=== PATIENT | female | born 1975 | race Caucasian/White ===

== ENCOUNTER → 2022-04-04 14:02 | Outpatient (CLI) | payer BC, SELFPAY ==
--- NOTE | ~2022-04-04 | MM_ITS ---
EXAMINATION: MM scrn justen implant BI w adrianne HISTORY: Screening mammogram TECHNIQUE: Craniocaudal and mediolateral oblique 3-D tomosynthesis images with implant displacement a nd synthetic 2-D images were generated. Craniocaudal and mediolateral oblique views of the breasts wi thout implant displacement were obtained using full field digital mammography. CAD analysis was submi tted and interpreted. COMPARISON: No prior mammogram is available for comparison at this institution. BREAST PARENCHYMAL COMPOSITION: The breasts are heterogeneously dense, which may obscure small masses FINDINGS: There are bilateral subpectoral silicone implants. There is no evidence of suspicious mass, calcification, or architectural distortion to suggest malignancy in either breast. There has been no suspicious interval change. IMPRESSION: 1. No mammographic evidence of malignancy. 2. Recommend routine screening mammography in one year. BI-RADS Category 1: Negative Reviewed, dictated and finalized at location A.
== END ==
PROVIDERS: PCP Family Medicine; Visit Provider Nurse Practitioner Obstetrics & Gynecology
DX: Z12.31 Encounter for screening mammogram for malignant neoplasm of breast (principal)
CPT/HCPCS: 77063; 77067

== ENCOUNTER 2025-04-18 17:25 | Emergency (ER) | payer BC, SELFPAY ==
--- OUTSIDE RECORDS SUMMARY | 2025-04-18 17:31 | XMS_ITS | Clinical Summary ---
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 Name Role Phone Unavailable Primary Care Provider Unavailabl e Allergies No known active allergies Social History Tobacco Use Types Packs/Day Years Used Date Smoking Tobacco: Former Smokeless Tobacco: Never Alcohol Use Standard Drinks/Week Comments Yes 0 (1 standard drink = 0.6 oz pur e alcohol) 4-5 days/week Comments Unknown Sex and Gender Information Value Date Recorded Sex Assigned at Not on file Legal Sex Female 8:29 PM CDT Gender Identity Not on file Sexual Orientation Not on file Last Filed Vital Signs Vital Sign Reading Time Taken Comments Blood Pressure 120/62 06/20/2017 5:16 PM MILLER SUPERVISOR Pulse 91 06/20/2017 5:16 PM MILLER SUPERVISOR Temperature 36.4 C (97.6 F) 06/20/2017 5:16 PM MILLER SUPERVISOR Respiratory Rate 18 06/20/2017 5:16 PM MILLER SUPERVISOR Oxygen Saturation 100% 06/20/2017 5:16 PM MILLER SUPERVISOR Inhaled Oxygen Concentration - - Weight - - Height - - Body Mass Index - - Plan of Treatment Health Maintenance Due Date Last Done Comments Cervical Cancer Screening Pa p Smear (Age 30 to 64) Every 3 Years 1977 Colorectal Cancer Screening Colonoscopy (10 Years) 1977 Annual Physical 1980 Hepatitis C 1995 DTaP, Tdap and Td Vaccines ( 1 - Tdap) 1996 Hepatitis B Vaccines (1 of 3 - 19+ 3-dose series) 1996 Cervical Cancer Screening Pa p with HPV Testing (Age 30 to 64) Every 5 Years 2007 Cervical Cancer Screening with HPV 2007 Mammogram Screening 2017 COVID-19 Vaccine (2024-2 6 season) 2025 Influenza Adult (#1) 2025 Hepatitis A Vaccines Aged Out No long er eligible based on patient's age to complete this topic Meningococcal B Vaccine Aged Out No l onger eligible based on patient's age to complete this topic Meningococcal Vaccine Aged Out No shira klaudia eligible based on patient's age to complete this topic Pneumococcal Vaccine: Pediat rics (0 to 5 Years) and At-Risk Patients (6 to 49 Years) Aged Out No longer eligible b ased on patient's age to complete this topic RSV Immunizations Under 20 Months Aged Out No longer eligible based on patient's age to complete this topic Insurance
--- OUTSIDE RECORDS SUMMARY | 2025-04-18 17:31 | XMS_ITS | Clinical Summary ---
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 Gender Identity Not on file Sexual Orientation Not on file Plan of Treatment Health Maintenance Due Date Last Done Comments Hepatitis C Virus (HCV) Screening 1977 TdaP Immunization 1977 Hepatitis B Immunization (1 of 3 - 19+ 3-dose series) 1996 Pap Smear 1998 Cervical Cancer Screening (CCS) 2007 HPV/Cotest 2007 Cologuard 2022 Colonoscopy 2022 Colorectal Cancer Screening 2022 Immunochemical Fecal Occult Blood 2022 Influenza Immunization (#1) 02/23/202503/26, 04/04/2019, 04/10/2018, Additional history exists SARS-COV-2 Immunization ( season) 2025 Respiratory Syncytial Virus (RSV) Immunization (Adult) (1 - 1-dose 75+ series) 2052 Human Papillomavirus (HPV) Immunization Aged Out No longer eligible based on patient's age to complete this topic Meningococcal Immunization (ACWY) Aged Out No longer eligible based on patient's age to complete this topic Pneumococcal Immunization Combined Aged Out No longer eligible based on patient's age to complete this topic Rotavirus Immunization Aged Out No lo nger eligible based on patient's age to complete this topic Insurance [employer] on file
[2025-04-18 17:34] VITALS: BP 118/69; PULSE 86; RESP 18; TEMP 36.8; O2SAT 100
--- NOTE | 2025-04-18 17:40 | ED.URI ---
HPI - URI/Sore Throat General Chief Complaint: Upper Respiratory Infection Stated Complaint: URI Time Seen by Provider: 04/18/25 17:28 patient presents to the [facility] with complaints of cough, nasal congestion, sore throat, headache, sinus pain that began about a week and a half ago. Patient also reports possible fever/chills intermittently over this time frame as well. Noted worsening sore throat, sinus pain, and fatigue over the last couple days. Patient has been using Sudafed with temporary relief of symptoms. Denies dizziness, ear pain, shortness a breath, nausea, vomiting, diarrhea. Related Data Allergies Allergy/AdvReac Type Severity Reaction Status Date / Time Penicillins Allergy Unknown rash Verified 04/18/25 17:34 sulfamethizole Allergy Unknown rash Verified 04/18/25 17:34 doxycycline AdvReac Unknown stomach Verified 04/18/25 17:34 pain escitalopram AdvReac Unknown heartburn Verified 04/18/25 17:34 Review of Systems Constitutional: Constitutional: Reports as per HPI, Reports chills, Reports fatigue, Reports fever(s) and Denies weakness Eyes: Eyes: Reports no additional eye complaints ENT: Reports as per HPI, Denies vertigo, Denies dizziness, Reports nasal congestion and Reports sore throat Comments: Sinus pain Cardiovascular: Cardiovascular: Reports no additional cardiovascular complaints Respiratory: Respiratory: Reports as per HPI, Reports chest congestion, Reports cough, Denies dyspnea and Denies wheezing Gastrointestinal: Gastrointestinal: Reports no additional gastrointestinal complaints Genitourinary: Genitourinary: Reports no additional female genitourinary complaints Musculoskeletal: Musculoskeletal: Reports no additional musculoskeletal complaints Integumentary/Breasts: Skin/Breast: Reports system reviewed and no additional complaints, except as docu Neurologic: Reports as per HPI, Denies vertigo, Denies dizziness, Reports headache(s) and Denies weakness Psychiatric: Psychiatric: Reports no additional psychiatric complaints Endocrine: Endocrine: Reports no additional endocrine complaints Hematologic/Lymphatic: Hematologic/Lymphatic: Reports no additional hematologic/lymphatic complaints Allergic/Immunologic: Allergic/Immunologic: Reports as per HPI Comments: seasonal allergies PMFSH Social History Social History Smoking status: Former smoker Alcohol intake: current Exam Const: General: healthy appearing and no acute distress Nutritional Appearance: well nourished Orientation/consciousness: patient oriented x3 Limitations: no limitations HENMT: Head: normal to inspection Ears: external ears normal and TM's abnormal bilaterally ( dullness with mild erythema bilaterally) Face/Nose/Sinus: Normal external nose present and Normal nares present Face and sinus: normal facial exam and sinus tenderness maxillary Mouth: Yes Normal oral and palatal mucosa present, Yes lip normal and Yes moist mucous membranes Throat: posterior oropharynx abnormal ( minimal erythema with no edema or exudate) Neck: Neck: normal visual inspection and no lymphadenopathy Resp: Effort & Inspection: normal respiratory effort Auscultation: clear to auscultation bilaterally Other: dry cough noted Cardio: Rate: regular rate Rhythm: regular rhythm Skin: General skin exam: normal color Rashes: no rashes Wounds: no wounds Neuro: General: patient oriented x3 Speech: normal speech Gait exam (Neuro): Normal gait present Psych: Mental Status: mental status grossly normal Affect: normal affect Attitude: cooperative Course Course Level of Care: Express Care Visit Vital Signs Vital signs: Vital Signs Temperature 98.2 F 04/18/25 17:34 Pulse Rate 86 04/18/25 17:34 Respiratory Rate 18 04/18/25 17:34 Blood Pressure 118/69 04/18/25 17:34 Pulse Oximetry 100 04/18/25 17:34 Oxygen Delivery Room Air 04/18/25 17:34 Temperature 98.2 F 04/18/25 17:34 Pulse Rate 86 04/18/25 17:34 Respiratory Rate 18 04/18/25 17:34 Blood Pressure 118/69 04/18/25 17:34 Pulse Oximetry 100 04/18/25 17:34 Oxygen Delivery Room Air 04/18/25 17:34 MDM - URI/Sore Throat MDM Narrative Medical decision making narrative: The patient was evaluated by myself in the express care. History is obtained from patient who is an independent historian and physical exam was performed. Available medical records were reviewed at this time. Exam findings show no acute concerns or changes; patient is non-toxic appearing and is in no distress. Patient is appropriate for outpatient treatment and follow-up. I have evaluated and discussed social determinants of health with the patient that could potentially impact subsequent diagnosis and treatment plans. Differential diagnosis and treatment plan were discussed with the patient. Patient agrees with discussion and after shared medical decision making agrees with plan of care. All questions were answered to the patient's satisfaction. Differential Diagnosis Differential diagnosis: Likely upper respiratory infection, croup, otitis media, sinusitis, viral infection, bronchitis, influenza and pharyngitis Medical Records Attestation: I reviewed the patient's medical records. Discharge Plan Discharge Clinical Impression: Sinusitis Patient Disposition: Home Condition: Stable Instructions: Antibiotic Form, Sinusitis (ED) Additional Instructions: Take the antibiotics as directed for the entire course. Do not miss any doses. What you are taking antibiotics and is recommended to take a probiotic or have yogurt daily to return the good gut bacteria to your system. This can also help with acute diarrhea while taking antibiotics. It can take 24-48 hours for the antibiotics to start to relieve your symptoms continue to take these medications to help with various symptoms: Tylenol or Motrin for pain, headache, or fever Flonase/fluticasone or Nasacort/triamcinolone nasal spray- helps with congestion and nasal drainage. Sudafed/pseudoephedrine helps with sinus pain and congestion. Caution with high blood pressure. Use a humidifier or vaporizer at night. Drink plenty of water. 8-10 glasses per day. Mucinex/guaifenesinas directed and be sure to take with 8oz of water. Warm compresses over the forehead and cheeks to promote sinus drainage. Return to urgent care or go to the ER for new or worsening symptoms. Follow up with Primary provider if not improved after 1 week. Patient Language: Citizen Of [place] Prescriptions: New cefdinir 300 mg capsule 300 mg PO Q12H Qty: 20 0RF Follow-up/Referrals: Rory Keith MD [Primary Care Provider, [facility]] Time of Disposition: 17:41
== END 2025-04-18 17:44 | disposition home or self-care (01) ==
PROVIDERS: Emergency Provider Nurse Practitioner Family; PCP Family Medicine
DX: J32.9 Chronic sinusitis, unspecified (principal); Z87.891 Personal history of nicotine dependence
CPT/HCPCS: 99213; G0463

== ENCOUNTER 2025-04-25 15:29 | Emergency (ER) | payer BC, SELFPAY ==
--- OUTSIDE RECORDS SUMMARY | 2025-04-25 15:32 | XMS_ITS | Clinical Summary ---
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
--- OUTSIDE RECORDS SUMMARY | 2025-04-25 15:32 | XMS_ITS | Clinical Summary ---
Author Organization [facility] Address [address] [place] [id number] Care Team Providers Care Optimization Consultant Name Role Phone Unavailable Primary Care Provider [...] Comments Blood Pressure 120/62 06/20/2017 5:16 PM RADIOLOGY TECHNICIAN Pulse 91 06/20/2017 5:16 PM RADIOLOGY TECHNICIAN Temperature 36.4 C (97.6 F) 06/20/2017 5:16 PM RADIOLOGY TECHNICIAN Respiratory Rate 18 06/20/2017 5:16 PM RADIOLOGY TECHNICIAN Oxygen Saturation 100% 06/20/2017 5:16 PM RADIOLOGY TECHNICIAN Inhaled Oxygen Concentration - - Weight - [...]
--- NOTE | 2025-04-25 15:33 | ED.GENADULT ---
HPI - General Adult General Chief complaint: Upper Respiratory Infection Stated complaint: Cold Like Time Seen by Provider: 04/25/25 15:33 Source: patient Mode of arrival: ambulatory Limitations: no limitations History of Present Illness HPI narrative: 49-year-old female patient presents to [facility] with complaints cough with sputum production, tenderness to the maxillary sinuses, fatigue and states just overall not feeling any better. Patient was seen here last week and was diagnosed with sinusitis and given an antibiotic. Patient states she has been taking the antibiotic as prescribed does not feel like it is improving her symptoms at all. Patient denies any chest pain or shortness of breath. Patient states she has been taking Sudafed along with the antibiotic. Patient denies fevers at this time. Related Data Allergies Allergy/AdvReac Type Severity Reaction Status Date / Time Penicillins Allergy Unknown rash Verified 04/25/25 15:37 sulfamethizole Allergy Unknown rash Verified 04/25/25 15:37 doxycycline AdvReac Unknown stomach Verified 04/25/25 15:37 pain escitalopram AdvReac Unknown heartburn Verified 04/25/25 15:37 Review of Systems Review of Systems: CONSTITUTIONAL: Denies fever, chills, or sweats. EYES: Denies visual changes, redness, or discharge. ENT: Denies rhinorrhea, Positive congestion, denies sore throat, or otalgia. CARDIOVASCULAR: Denies chest pain, palpitations, or edema. RESPIRATORY: positive cough denies dyspnea. GASTROINTESTINAL: Denies abdominal pain, nausea, vomiting, or diarrhea. GENITOURINARY: Denies dysuria or hematuria. SKIN: Denies rash or itching. MUSCULOSKELETAL: Denies back pain, joint pain, or myalgia. NEUROLOGIC: Denies headache, numbness, or weakness. PSYCHIATRIC: Denies anxiety or depression. PMFSH Past Medical History Medical History (Updated 04/25/25 @ 15:55 by Gricelda Welch APRN) Leukocytosis Asthma Social History Social History Smoking status: Former smoker Alcohol intake: current Comments At the time of my signature I agree with nursing past medical history, surgical, social, and family history. There is no relevant family history pertinent to the presenting complaint. Exam Narrative: GENERAL: Well-appearing, well-nourished, and in no acute distress. HEAD: Normocephalic, atraumatic. EYES: PERRLA and EOMI. ENT: Nares with erythema edema noted bilaterally, no rhinorrhea or epistaxis. Mucous membranes moist. posterior pharynx with no erythema, tonsillar enlargement, exudates or lesions present. Bilateral TMs do appear slightly injected. There is tenderness noted along palpation of the maxillary sinuses. NECK: Supple. No lymphadenopathy CHEST: Clear to auscultation. No respiratory distress. HEART: Regular rate and rhythm. No murmur heard. Normal peripheral pulses. ABDOMEN: Soft, nontender, nondistended, normal active bowel sounds. EXTREMITIES: Normal range of motion. No edema. SKIN: Warm, dry, no rash. NEURO: No focal deficits. Alert and oriented x3. Course Course Level of Care: Express Care Visit Vital Signs Vital signs: Vital Signs Temperature 36.5 C 04/25/25 15:35 Pulse Rate 90 04/25/25 15:35 Respiratory Rate 18 04/25/25 15:35 Blood Pressure 126/63 04/25/25 15:35 Pulse Oximetry 100 04/25/25 15:35 Oxygen Delivery Room Air 04/25/25 15:35 Temperature 36.5 C 04/25/25 15:35 Pulse Rate 90 04/25/25 15:35 Respiratory Rate 18 04/25/25 15:35 Blood Pressure 126/63 04/25/25 15:35 Pulse Oximetry 100 04/25/25 15:35 Oxygen Delivery Room Air 04/25/25 15:35 vital signs reviewed Medical Decision Making MDM Narrative Medical decision making narrative: Discussed with patient to complete the antibiotic that was prescribed to her last week and we will add a steroid to help with the inflammation of the sinuses along with [place] for her cough. Discussed with her that her lung sounds are nice and clear and therefore I do not believe that her symptoms are coming from the lungs I do believe this is most likely some inflammation. Also recommend that she increase her vitamin intake vitamin-C, zinc and vitamin-D which will help her immune system fight off the virus. Discussed with patient if she continues to have worsening symptoms she needs to see her primary doctor for further evaluation. Differential Diagnosis Differential Diagnosis: differential diagnosis: Allergic rhinitis, chronic sinusitis, tonsillitis, acute sinusitis, infectious mononucleosis, seasonal influenza, pertussis, diphtheria, meningococcal disease, viral syndrome, viral bronchitis, RSV, COVID-19 Vital Signs Vital Signs: Vital Signs Temperature 36.5 C 04/25/25 15:35 Pulse Rate 90 04/25/25 15:35 Respiratory Rate 18 04/25/25 15:35 Blood Pressure 126/63 04/25/25 15:35 Pulse Oximetry 100 04/25/25 15:35 Oxygen Delivery Room Air 04/25/25 15:35 Temperature 36.5 C 04/25/25 15:35 Pulse Rate 90 04/25/25 15:35 Respiratory Rate 18 04/25/25 15:35 Blood Pressure 126/63 04/25/25 15:35 Pulse Oximetry 100 04/25/25 15:35 Oxygen Delivery Room Air 04/25/25 15:35 Critical Care Time Critical Care Time Critical Care Time: No Discharge Plan Discharge Clinical Impression: Acute viral sinusitis Patient Disposition: Home Condition: Stable Instructions: Antibiotic Form, Sinusitis (ED) Additional Instructions: Viral illness may last between 7-12days; antibiotic is NOT recommended at this time. Recommend antihistamine such as Benadryl at night time and Claritin/Zyrtec/Jo during the day take oral steroid in the morning with food. Side effects of oral steroids can increase hunger, make you feel hyper and decrease sleep. Increase vitamin intake take 4000 mg of vitamin-C daily 1999 in the morning in 1999 in the evening. Vanc 40-50 mg a day for 4-5 days and vitamin D 8150-4268 IU daily will help decrease your viral load. Also, recommend symptomatic treatment includes: rest, fluids, and increase humidity of the air at home. Recommend Acetaminophen or nonsteroidal anti-inflammatory agents (NSAIDs) as directed in the bottle to reduce fever and/pain/headache. Avoid smoking/second-hand smoke. Limit visits to areas with large crowds. Please schedule a follow-up visit with your personal physician for further evaluation and treatment within 3-5days. Including recheck and discussion of your blood pressure. If your symptoms persist, change or worsen significantly before you can contact your personal physician then please, without delay, go to the emergency department for further evaluation. Patient Language: Croatian Prescriptions: New benzonatate 200 mg capsule 200 mg PO TID PRN (Reason: cough) 10 Days Qty: 30 0RF prednisone 20 mg tablet 20 mg PO DAILY 5 Days Qty: 5 0RF No Action cefdinir 300 mg capsule 300 mg PO Q12H Qty: 20 0RF Follow-up/Referrals: Rory Keith MD [Primary Care Provider, [facility]] Time of Disposition: 15:55
--- OUTSIDE RECORDS SUMMARY | 2025-04-25 15:33 | XMS_ITS | Data Portability ---
Author Organization [facility] Address [address] [place] [address] Care Team Providers Care Music Publicist Name Role Phone KARLOSFELSIA RADER Primary Care Provider [phone] Assessment Encounter Date Assessment Date Assessment LastModified by Organization Details LastModified Time 08/28/2020 08/28/2020 Annual gynecological exam performed. Patient will come back in a year unless there are new symptoms. [email or web address] Not available 08/28/2020 11:17:32 02/07/2022 02/07/2022 Annual gynecological exam performed. Patient will come back in a year unless there are new symptoms. Not available 02/07/2022 11:00:51 03/15/2023 03/15/2023 Annual gynecological exam performed. Patient will come back in a year unless there are new symptoms. [email or web address] Not available 03/15/2023 13:59:31 07/31/2024 07/31/2024 Annual gynecological exam performed. Patient will come back in a year unless there are new symptoms. Not available 07/25/2024 11:22:47 Plan of Treatment Reminders Order Date Submit Date Provider Last Modified By Organization Details Last Modified Time Details Appointments None recorded. Lab CBC w/ auto diff 2024 025 [facility] (Lab), [address], [place], [address], 05:15:20 CMP, serum or plasma 2024 025 [facility] (Lab), [address], [place], [address], 5 05:15:20 lipid panel, blood 2024 025 [facility] (Lab), [address], [place], [address], 5 05:15:21 TSH, serum or plasma 2024 025 [facility] (Lab), [address], [place], [address], 5 05:15:21 HbA1c (hemoglobi n A1c), blood 2024 025 [facility] (Lab), [address], [place], [address], 5 05:15:21 lipid panel, blood 2021 022 [facility] (Lab), [address], [place], [address], 2 03:48:58 HbA1c (hemoglobi n A1c), blood 2021 022 [facility] (Lab), [address], [place], [address], 2 03:48:58 CMP, serum or plasma 2021 022 [facility] (Lab), [address], [place], [address], 2 03:48:59 vitamin D, 25-hydroxy , total, serum 2021 022 [facility] (Lab), [address], [place], [address], 2 03:48:59 CBC w/ auto diff 2021 022 [facility] (Lab), [address], [place], [address], 03:48:57 TSH, serum or plasma 2021 022 [facility] (Lab), [address], [place], [address], 03:48:59 Referral None recorded. Procedures None recorded. Surgeries None recorded. Imaging US, neck, soft tissue 2024 025 [email or web address] [facility], [address], [place], [address], 12:31:25 MAMMO, screening, digital, bilateral 2024 025 [facility], [address], [place], [address], 5 05:01:35 MAMMO, screening, bilateral 2022 023 [email or web address] [facility], [address], [place], [address], 3 10:49:36 MAMMO, screening, bilateral 2021 022 [facility], [address], [place], [address], 2 16:57:55 Medication Orders None recorded. Patient TargetsNo targets recorded. Patient InstructionsNo instructions recorded. Reason for Referral None Reported. 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 Locat ion: [place] Patho logy Recei blake: 08/31 1622 First Scree n: Elena Pires ret, CT Speci men: Scree jamari Pap - Image d, Cervi x STATE MENT OF ADEQU ACY: Satis facto ry for evalu ation Trans forma tion zone compo nent prese nt FINAL DIAGN OSIS: Negat praveen for Squam ous Intra epith elial Lesio n Elect albaniamagalys murillolisandra barney d by Elena Pires ret, CT on 2020 at 1:26 PM ----- ----- ----- ----- ----- ----- ----- ----- ----- ----- ----- ----- ----- ----- ----- ----- ----- ----- - CHART ABLE COMME NT: Note: This speci men was revie wed by a Cytot echno logis t and/o r Patho logis t (as indic ated in this repor t) after evalu ation using the Thinp rep Imagi ng Syste m. CLINI KORINA INFOR MATIO N: Menst rual Statu s: LMP (if appli cable ): 2020 Clini korina Histo ry/Pr eviou s Pap: Type of Neopl benjamin (if appli cable ): Other Histo ry: Hormo angélica (if appli cable ): PAP EDUCA THERESA L NOTE: The Pap Test is a scree jamari test with an inher ent false negat praveen rate. Liqui d-bas e sampl ing may decre ase, but will not elimi meeta, false negat praveen resul ts. A negat praveen resul t does not precl ude the prese nce and/o r devel opmen t of disea se, since the prese nce of abnor mal cells in the sampl e depen ds on the locat ion of the lesio n and sampl ing techn ique. Guy nued regul ar scree jamari is the best metho d of cance r preve ntion . If repor ángel cytol ogic findi ng do not corre late with physi korina and/o r histo rical findi ngs, furth er inves tigat ion is recom ann d, as clini bernardo briones nted. Not Available [facility] (Lab) [address] [facility], [place], [address], 09/01/2020 14:29:40 08/31/19 21 08/30/2020 pap, LB + HPV mRNA E6/E7 HPV MRNA E6/E7 No HPV mRNA Detect ed no HPV MRNA detect ed Not Available [facility] (Lab) [address] [facility], [place], [address], 09/08/2020 13:20:52 02/08/20 22 02/07/2022 IMAGE GUIDE D PAP AND HPV REGAR DLESS image guided Pap, HPV regardless of Pap result SEE RESULT S BELOW CASE REPOR T: Cytol ogy Gynec ologi korina Repor t Case: [id number] Autho enoc medrano Provi hieu: Rod Rachel Colle cted: 02/07 1613 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 FINAL DIAGN OSIS: Negat praveen for Intra epith elial Xiomara n or Ekta vernon (NIL) . Elect vianey corley d by Natalya Lan, CT on 2021 at 11:12 AM ----- ----- ----- ----- ----- ----- ----- ----- ----- ----- ----- ----- ----- ----- ----- ----- ----- ---- HPV RESUL TS: HPV mRNA E6/E7 : No HPV mRNA Detec ángel NOTE: This high risk HPV mRNA assay detec ts fourt een high- risk HPV types (16, 18, 31, 33, 35, 39, 45, 51, 52, 56, 58, 59, 66, 68) witho ut diffe renti ation . COMME NT: Note: This speci men was revie wed by a Cytot echno logis t and/o r Patho logis t (as indic ated in this repor t) after evalu ation using the Thinp rep Imagi ng Syste m. CLINI KORINA INFOR MATIO N: Menst rual Statu s: LMP (if appli cable ): Clini korina Histo ry/Pr eviou s Pap: Type of Neopl benjamin (if appli cable ): Signi fican t Clini korina Findi ngs: Other Histo ry: Hormo angélica (if appli cable ): PAP EDUCA THERESA L NOTE: The Pap Test is a scree jamari test with an inher ent false negat praveen rate. Liqui d-bas ed sampl ing may decre ase, but will not elimi meeta, false negat praveen resul ts. A negat praveen resul t does not precl ude the prese nce and/o r devel opmen t of disea se, since the prese nce of abnor mal cells in the sampl e depen ds on the locat ion of the lesio n and sampl ing techn ique. Guy nued regul ar scree jamari is the best metho d of cance r preve ntion . If repor ángel cytol ogic findi ng do not corre late with physi korina and/o r histo rical findi ngs, furth er inves tigat ion is recom ann d, as clini bernardo briones nted. Not Available [facility] [address] [place], [address], 02/13/2022 12:14:49 02/15/2002/14/2022 CBC W/DIF F WBC 10.7 10'3/ uL 3.6-10 .2 high Not Available [facility] [place], [address], 02/15/2022 03:48:57 02/15/20 22 02/14/2022 CBC W/DIF F RBC 4.38 10'6/ uL (based on docume nted legal sex) 4.10-5 .30 Not Available [facility] [address], [place], [address], 02/15/2022 03:48:57 02/15/20 22 02/14/2022 CBC W/DIF F HGB 13.1 g/dL (based on docume nted legal sex) 11.9-1 5.8 Not Available [facility] [place], [address], 02/15/2022 03:48:57 02/15/20 22 02/14/2022 CBC W/DIF F HCT 40.7 % (based on docume nted legal sex) 37.4-4 8.3 Not Available [facility] [place], [address], 02/15/2022 03:48:57 02/15/20 22 02/14/2022 CBC W/DIF F MCV 92.9 fL 82.0-9 9.0 Not Available [facility] [place], [address], 02/15/2022 03:48:57 02/15/20 22 02/14/2022 CBC W/DIF F MCH 29.9 pg 27.0-3 3.0 Not Available [facility] [place], [address], 02/15/2022 03:48:57 02/15/20 22 02/14/2022 CBC W/DIF F MCHC 32.2 g/dL 32.0-3 6.0 Not Available [facility] [place], [address], 02/15/2022 03:48:57 02/15/20 22 02/14/2022 CBC W/DIF F RDW 14.1 % 11.0-1 5.0 Not Available [facility] [place], [address], 02/15/2022 03:48:57 02/15/20 22 02/14/2022 CBC W/DIF F plt 287 10'3/ uL 150-45 0 Not Available [facility] [place], [address], 02/15/2022 03:48:57 02/15/20 22 02/14/2022 CBC W/DIF F MPV 10.5 fL 9.8-12 .7 Not Available [facility] [place], [address], 02/15/2022 03:48:57 02/15/20 22 02/14/2022 CBC W/DIF F NRBC's 0.0 % 0 Not Available [facility] [place], [address], 02/15/2022 03:48:57 02/15/20 22 02/14/2022 CBC W/DIF F absolute NRBCs 0.0 10'3/ uL 0 Not Available [facility] [place], [address], 02/15/2022 03:48:57 02/15/20 22 02/14/2022 CBC W/DIF F neutrophils 75.5 % 37.0-7 2.0 high Not Available [facility] [place], [address], 02/15/2022 03:48:57 02/15/20 22 02/14/2022 CBC W/DIF F lymphocytes 15.0 % 16.0-4 8.0 low Not Available [facility] [address] [place], [place] [address], [place], [address], 02/15/2022 03:48:57 02/15/20 22 02/14/2022 CBC W/DIF F monocytes 6.9 % 4.0-14 .0 Not Available [facility] [address] [place], [place] [address], [place], [address], 02/15/2022 03:48:57 02/15/20 22 02/14/2022 CBC W/DIF F eosinophils 1.5 % 0.0-9. 0 Not Available [facility] [address] [place], [place] [address], [place], [address], 02/15/2022 03:48:57 02/15/20 22 02/14/2022 CBC W/DIF F basophils 0.9 % 0.0-2. 0 Not Available [facility] [address] [place], [place] [address], [place], [address], 02/15/2022 03:48:57 02/15/20 22 02/14/2022 CBC W/DIF F immature granulocytes 0.2 % no define d refere nce range Not Available [facility] [address] [place], [place] [address], [place], [address], 02/15/2022 03:48:57 02/15/20 22 02/14/2022 CBC W/DIF F absolute neutrophils 8.1 10'3/ uL 1.1-6. 0 high Not Available [facility] [address] [place], [place] [address], [place], [address], 02/15/2022 03:48:57 02/15/20 22 02/14/2022 CBC W/DIF F absolute lymphocytes 1.6 10'3/ uL 0.7-3. 4 Not Available [facility] [address] [place] [address], [address], 02/15/2022 03:48:57 02/15/20 22 02/14/2022 CBC W/DIF F absolute monocytes 0.7 10'3/ uL 0.3-1. 0 Not Available [facility] [address] [place] [address], [address], 02/15/2022 03:48:57 02/15/20 22 02/14/2022 CBC W/DIF F absolute eosinophils 0.2 10'3/ uL 0.0-0. 6 Not Available [facility] [address] [place] [address], [address], 02/15/2022 03:48:57 02/15/20 22 02/14/2022 CBC W/DIF F absolute basophils 0.1 10'3/ uL 0.0-0. 1 Not Available [facility] [address] [place] [address], [address], 02/15/2022 03:48:57 02/15/20 22 02/14/2022 CBC W/DIF F absolute immature granulocytes 0.0 10'3/ uL 0.00-0 .10 2021 1:08 AM: P indic ates parti al resul ts on a panel have been relea sed. Addit ional resul ts will vaughn w. 2021 1:09 AM: This resul t has been final verif ied. No addit ional or campos ed resul ts are expec ángel. Not Available [facility] [address] [place] [address], [address], 02/15/2022 03:48:57 02/15/2002/14/2022 HEMOG LOBIN A1C hemoglobin A1C 5.2 % 0-5.6 The Ameri can Diabe jodi [employer] iatio n recom mends that a prima ry goal of thera py marilinul d be a HBA1C of < 7% and that physi cians shoul d reeva luate the treat ment regim en in patie nts with HBA1C value s consi stent ly > 8%. <5.7% Bharti l 5.7 - 6.4% Incre ased risk for diabe jodi >=6.5 % Diagn ostic of diabe jodi <7.0% Goal of thera py >8.0% Actio n sugge sted Not Available [facility] [address] [place] [address], [address], 02/15/2022 03:48:58 02/15/2002/14/2022 LIPID PANEL ,AMA (LDL- CALC) total cholesterol 130 mg/dL 0-199 Not Available [facility] Disease [address] [place] [address], [address], 02/15/2022 03:48:58 02/15/2002/14/2022 LIPID PANEL ,AMA (LDL- CALC) triglyceride s 46 mg/dL 0.00-1 50.00 NCEP Refer ence Value s for Trigl yceri olayinka: Bharti l: <150 mg/dL Borde rline High: 150 - 199 mg/dL High: 200 - 499 mg/dL Very High: >/= 500 mg/dL Not Available [facility] [address] [place] [address], [address], 02/15/2022 03:48:58 02/15/2002/14/2022 LIPID PANEL ,AMA (LDL- CALC) HDL cholesterol 63 mg/dL >40 Not Available [facility] [address] [place], [address], 02/15/2022 03:48:58 02/15/20 22 02/14/2022 LIPID PANEL ,AMA (LDL- CALC) LDL cholesterol 58 mg/dL 0-99 Cutof f value s recom ann d by the Osmar hanley Nereyda stero l Educa tion Progr am: ROXANNE ABLE: Nereyda stero l <200 mg/dL LDL <100 mg/dL BORDE RLINE : Nereyda stero l 200-2 39 mg/dL LDL 101-1 59 mg/dL HIGHE R RISK: Nereyda stero l >240 mg/dL LDL >160 mg/dL , HDL <40 mg/dL Not Available [facility] [address] [place], [address], 02/15/2022 03:48:58 02/15/20 22 02/14/2022 LIPID PANEL ,AMA (LDL- CALC) non-HDL cholesterol 67 mg/dL no refere nce range A reaso nable goal for non-H DL nereyda stero l is one that is 30 mg/dL highe r than the LDL nereyda stero l goal. Not Available [facility] [address] [place], [address], 02/15/2022 03:48:58 02/15/20 22 02/14/2022 LIPID PANEL ,AMA (LDL- CALC) chol/HDL ratio 2.1 . 0.0-5. 0 Not Available [facility] [address] [place], [address], 02/15/2022 03:48:58 02/15/20 22 02/14/2022 CMP(C OMPRE HENSI VE METAB OLIC PANEL ) sodium 138 mmol/ L 133-14 6 Not Available [facility] [address] [place], [address], 02/15/2022 03:48:59 02/15/20 22 02/14/2022 CMP(C OMPRE HENSI VE METAB OLIC PANEL ) potassium 4.3 mmol/ L 3.5-5. 1 Not Available [facility] Disease [address] [place], [place] [address], [place], [address], 02/15/2022 03:48:59 02/15/20 22 02/14/2022 CMP(C OMPRE HENSI VE METAB OLIC PANEL ) chloride 104 mmol/ L 98-107 Not Available [facility] [address] [place] [address], [address], 02/15/2022 03:48:59 02/15/20 22 02/14/2022 CMP(C OMPRE HENSI VE METAB OLIC PANEL ) carbon dioxide 26 mmol/ L 21-31 Not Available [facility] [address] [place] [address], [address], 02/15/2022 03:48:59 02/15/20 22 02/14/2022 CMP(C OMPRE HENSI VE METAB OLIC PANEL ) anion gap 8 mmol/ L 4-13 Not Available [facility] Disease [address] [place] [address], [address], 02/15/2022 03:48:59 02/15/20 22 02/14/2022 CMP(C OMPRE HENSI VE METAB OLIC PANEL ) blood urea nitrogen 12 mg/dL 7-25 Not Available [facility] [address] [place] [address], [address], 02/15/2022 03:48:59 02/15/20 22 02/14/2022 CMP(C OMPRE HENSI VE METAB OLIC PANEL ) creatinine 0.73 mg/dL 0.60-1 .30 Not Available [facility] Disease [address] [place] [address], [address], 02/15/2022 03:48:59 02/15/20 22 02/14/2022 CMP(C OMPRE HENSI VE METAB OLIC PANEL ) egfrcr (CKD-epi 2020) >90 mL/mi n/1.7 3_m2 >=60 Not Available [facility] Disease [address] [place], [place] [address], [place], [address], 02/15/2022 03:48:59 02/15/20 22 02/14/2022 CMP(C OMPRE HENSI VE METAB OLIC PANEL ) calcium 9.1 mg/dL 8.3-10 .5 Not Available [facility] Disease [address] [place] [address], [address], 02/15/2022 03:48:59 02/15/2002/14/2022 CMP(C OMPRE HENSI VE METAB OLIC PANEL ) glucose 80 mg/dL 70-100 Not Available [facility] [address] [place] [address], [address], 02/15/2022 03:48:59 02/15/20 22 02/14/2022 CMP(C OMPRE HENSI VE METAB OLIC PANEL ) protein, total 6.5 g/dL 6.4-8. 3 Not Available [facility] [address] [place] [address], [address], 02/15/2022 03:48:59 02/15/20 22 02/14/2022 CMP(C OMPRE HENSI VE METAB OLIC PANEL ) albumin 3.9 g/dL 3.5-5. 0 Not Available [facility] [address] [place] [address], [address], 02/15/2022 03:48:59 02/15/20 22 02/14/2022 CMP(C OMPRE HENSI VE METAB OLIC PANEL ) ALT 10 units /L 9-43 Not Available [facility] [address] [place] [address], [address], 02/15/2022 03:48:59 02/15/20 22 02/14/2022 CMP(C OMPRE HENSI VE METAB OLIC PANEL ) alkaline phosphatase 40 units /L 34-104 Not Available [facility] [address] [place] [address], [address], 02/15/2022 03:48:59 02/15/20 22 02/14/2022 CMP(C OMPRE HENSI VE METAB OLIC PANEL ) AST 15 units /L 13-39 Not Available [facility] [address] [place] [address], [address], 02/15/2022 03:48:59 02/15/20 22 02/14/2022 CMP(C OMPRE HENSI VE METAB OLIC PANEL ) bilirubin, total 0.5 mg/dL 0.2-1. 2 Not Available [facility] Disease [address] [place] [address], [address], 02/15/2022 03:48:59 02/15/20 22 02/14/2022 TSH, REFLE X FREE T4 TSH 1.96 uIU/m L 0.30-5 .33 Not Available [facility] Disease [address] [place] [address], [address], 02/15/2022 03:48:59 02/15/20 22 02/14/2022 VITAM IN D, 25-OH (TOTA L D2/D3 ) vitamin D, 25-hydroxy, total 57.0 NG/mL 30.0-1 00.0 R-The refer ence range for this test has been updat ed. 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 Elect vianey amairani barney d by Joe plasencia, Reginaldo boyle, CT on 2022 at 12:48 PM ----- ----- ----- ----- ----- ----- ----- ----- ----- ----- ----- ----- ----- ----- ----- ----- ----- ---- HPV RESUL TS: HPV mRNA E6/E7 : No HPV mRNA Detec ángel NOTE: This high risk HPV mRNA assay detec ts fourt een high- risk HPV types (16, 18, 31, 33, 35, 39, 45, 51, 52, 56, 58, 59, 66, 68) witho ut diffe renti ation . COMME NT: This speci men was revie wed by a Cytot echno logis t and/o r Patho logis t (as indic ated in this repor t) after evalu ation using the Thinp rep Imagi ng Syste m. CLINI KORINA INFOR MATIO N: Menst rual Statu s: LMP (if appli cable ): Clini korina Histo ry/Pr eviou s Pap: Type of Neopl benjamin (if appli cable ): Signi fican t Clini korina Findi ngs: Other Histo ry: Hormo angélica (if appli cable ): PAP EDUCA THERESA L NOTE: The Pap Test is a scree jamari test with an inher ent false negat praveen rate. Liqui d-bas ed sampl ing may decre ase, but will not elimi meeta, false negat praveen resul ts. A negat praveen resul t does not precl ude the prese nce and/o r devel opmen t of disea se, since the prese nce of abnor mal cells in the sampl e depen ds on the locat ion of the lesio n and sampl ing techn ique. Guy nued regul ar scree jamari is the best metho d of cance r preve ntion . If repor ángel cytol ogic findi ng do not corre late with physi korina and/o r histo rical findi ngs, furth er inves tigat ion is recom ann d, as clini bernardo warrlyudmila nted. Not Available [facility] (Lab) [address] [facility], [place], [address], 03/19/2023 13:52:50 07/31/19 25 07/31/2024 CBC W/DIF F WBC 7.1 10'3/ uL 3.5-10 .5 Not Available [facility] (Lab) [address] [place], [address], 08/01/2024 05:15:20 07/31/19 25 07/31/2024 CBC W/DIF F RBC 4.65 10'6/ uL (based on docume nted legal sex) 3.80-5 .20 Not Available [facility] (Lab) [address] [place], [address], 08/01/2024 05:15:20 07/31/19 25 07/31/2024 CBC W/DIF F HGB 14.3 g/dL (based on docume nted legal sex) 11.6-1 5.4 Not Available [facility] (Lab) [address] [place], [address], 08/01/2024 05:15:20 07/31/19 25 07/31/2024 CBC W/DIF F HCT 43.8 % (based on docume nted legal sex) 34.0-4 5.0 Not Available [facility] (Lab) [address], [place], [address], 08/01/2024 05:15:20 07/31/19 25 07/31/2024 CBC W/DIF F MCV 94.2 fL 80.0-9 9.0 Not Available [facility] (Lab) [address] [facility], [place], [address], 08/01/2024 05:15:20 07/31/19 25 07/31/2024 CBC W/DIF F MCH 30.8 pg 27.0-3 4.0 Not Available [facility] (Lab) [address] [facility], [place], [address], 08/01/2024 05:15:20 07/31/19 25 07/31/2024 CBC W/DIF F MCHC 32.6 g/dL 32.0-3 5.5 Not Available [facility] (Lab) [address] [facility], [place], [address], 08/01/2024 05:15:20 07/31/19 25 07/31/2024 CBC W/DIF F RDW 13.3 % 11.0-1 5.0 Not Available [facility] (Lab) [address] [facility], [place], [address], 08/01/2024 05:15:20 07/31/19 25 07/31/2024 CBC W/DIF F plt 319 10'3/ uL 150-40 0 Not Available [facility] (Lab) [address] [facility], [place], [address], 08/01/2024 05:15:20 07/31/19 25 07/31/2024 CBC W/DIF F MPV 10.3 fL 8.8-12 .1 Not Available [facility] [facility] (Lab) [address] [facility], [place], [address], 08/01/2024 05:15:20 07/31/19 25 07/31/2024 CBC W/DIF F neutrophils 63.1 % 34.0-7 3.0 Not Available [facility] (Lab) [address] [facility], [place], [address], 08/01/2024 05:15:20 07/31/19 25 07/31/2024 CBC W/DIF F lymphocytes 26.2 % 15.0-5 0.0 Not Available [facility] (Lab) [address] [facility], [place], [address], 08/01/2024 05:15:20 07/31/19 25 07/31/2024 CBC W/DIF F monocytes 8.8 % 1.0-15 .0 Not Available [facility] (Lab) [address] [facility], [place], [address], 08/01/2024 05:15:20 07/31/19 25 07/31/2024 CBC W/DIF F eosinophils 0.7 % 0.0-8. 0 Not Available [facility] (Lab) [address] [place], [address], 08/01/2024 05:15:20 07/31/19 25 07/31/2024 CBC W/DIF F basophils 1.1 % 0.0-2. 0 Not Available [facility] (Lab) [address] [facility], [place], [address], 08/01/2024 05:15:20 07/31/19 25 07/31/2024 CBC W/DIF F immature granulocytes 0.1 % no define d refere nce range Immat ure Granu locyt es (IG) repre sents autom ated enume ratio n of Metam yeloc ytes, Myelo cytes and Promy elocy jodi when IG is < 5%. Blast s are not inclu ded in IG and repor ángel separ ately if prese nt. Not Available [facility] (Lab) [address] [facility], [place], [address], 08/01/2024 05:15:20 07/31/19 25 07/31/2024 CBC W/DIF F absolute neutrophils 4.5 10'3/ uL 1.5-8. 0 Not Available [facility] (Lab) [address] [place], [address], 08/01/2024 05:15:20 07/31/19 25 07/31/2024 CBC W/DIF F absolute lymphocytes 1.9 10'3/ uL 1.0-4. 0 Not Available [facility] (Lab) [address], [place], [address], 08/01/2024 05:15:20 07/31/19 25 07/31/2024 CBC W/DIF F absolute monocytes 0.6 10'3/ uL 0.2-1. 0 Not Available [facility] (Lab) [address] [place], [address], 08/01/2024 05:15:20 07/31/19 25 07/31/2024 CBC W/DIF F absolute eosinophils 0.1 10'3/ uL 0.0-0. 6 Not Available [facility] (Lab) [address] [place], [address], 08/01/2024 05:15:20 07/31/19 25 07/31/2024 CBC W/DIF F absolute basophils 0.1 10'3/ uL 0.0-0. 3 Not Available [facility] (Lab) [address] [place], [address], 08/01/2024 05:15:20 07/31/19 25 07/31/2024 CBC W/DIF F absolute immature granulocytes 0.0 10'3/ uL 0.00-0 .10 Refer ence range s for nonbi nary/ inter sex or unspe cifie d gende r patie nts have not been estab lishe d. Plemiryam e refer to the rusho wing table for range s estab lishe d for cisge nder patie nts and evalu ate in the clini korina saw xt of the indiv idual patie nt: https :[email or web address] adams book. nm.or g/Gen derX Not Available [facility] (Lab) [address] [facility], [place], [address], 08/01/2024 05:15:20 07/31/19 25 07/31/2024 CMP(C OMPRE HENSI VE METAB OLIC PANEL ) sodium 138 mmol/ L 133-14 6 Not Available [facility] (Lab) [address] [address] [facility], [place], [address], 08/01/2024 05:15:20 07/31/19 25 07/31/2024 CMP(C OMPRE HENSI VE METAB OLIC PANEL ) potassium 4.3 mmol/ L 3.5-5. 1 Not Available [facility] (Lab) [address], [place], [address], 08/01/2024 05:15:20 07/31/19 25 07/31/2024 CMP(C OMPRE HENSI VE METAB OLIC PANEL ) chloride 103 mmol/ L 98-107 Not Available [facility] (Lab) [address] [place], [address], 08/01/2024 05:15:20 07/31/19 25 07/31/2024 CMP(C OMPRE HENSI VE METAB OLIC PANEL ) carbon dioxide 30 mmol/ L 21-31 Not Available [facility] (Lab) [address] [place], [address], 08/01/2024 05:15:20 07/31/19 25 07/31/2024 CMP(C OMPRE HENSI VE METAB OLIC PANEL ) anion gap 5 mmol/ L 4-13 Not Available [facility] (Lab) [address] [place], [address], 08/01/2024 05:15:20 07/31/19 25 07/31/2024 CMP(C OMPRE HENSI VE METAB OLIC PANEL ) blood urea nitrogen 17 mg/dL 7-25 Not Available [facility] (Lab) [address], [place], [address], 08/01/2024 05:15:20 07/31/19 25 07/31/2024 CMP(C OMPRE HENSI VE METAB OLIC PANEL ) creatinine 0.89 mg/dL 0.60-1 .30 Not Available [facility] (Lab) [address], [place], [address], 08/01/2024 05:15:20 07/31/19 25 07/31/2024 CMP(C OMPRE HENSI VE METAB OLIC PANEL ) egfrcr (CKD-epi 2020) 80 mL/mi n/1.7 3_m2 >=60 Not Available [facility] (Lab) [address], [place], [address], 08/01/2024 05:15:20 07/31/19 25 07/31/2024 CMP(C OMPRE HENSI VE METAB OLIC PANEL ) calcium 9.5 mg/dL 8.3-10 .5 Not Available [facility] (Lab) [address] [facility], [place], [address], 08/01/2024 05:15:20 07/31/19 25 07/31/2024 CMP(C OMPRE HENSI VE METAB OLIC PANEL ) glucose 74 mg/dL 70-100 Not Available [facility] (Lab) [address] [facility], [place], [address], 08/01/2024 05:15:20 07/31/19 25 07/31/2024 CMP(C OMPRE HENSI VE METAB OLIC PANEL ) protein, total 7.0 g/dL 6.4-8. 3 Not Available [facility] (Lab) [address] [facility], [place], [address], 08/01/2024 05:15:20 07/31/19 25 07/31/2024 CMP(C OMPRE HENSI VE METAB OLIC PANEL ) albumin 4.6 g/dL 3.5-5. 0 Not Available [facility] (Lab) [address] [facility], [place], [address], 08/01/2024 05:15:20 07/31/19 25 07/31/2024 CMP(C OMPRE HENSI VE METAB OLIC PANEL ) ALT 20 units /L 9-43 Not Available [facility] (Lab) [address] [facility], [place], [address], 08/01/2024 05:15:20 07/31/19 25 07/31/2024 CMP(C OMPRE HENSI VE METAB OLIC PANEL ) alkaline phosphatase 45 units /L 34-104 Not Available [facility] (Lab) [address] [facility], [place], [address], 08/01/2024 05:15:20 07/31/19 25 07/31/2024 CMP(C OMPRE HENSI VE METAB OLIC PANEL ) AST 22 units /L 13-39 Not Available [facility] (Lab) [address] [facility], [place], [address], 08/01/2024 05:15:20 07/31/19 25 07/31/2024 CMP(C OMPRE HENSI VE METAB OLIC PANEL ) bilirubin, total 0.3 mg/dL 0.2-1. 2 Not Available [facility] (Lab) [address] [place], [address], 08/01/2024 05:15:20 07/31/19 25 07/31/2024 LIPID PANEL ,AMA (LDL- CALC) total cholesterol 180 mg/dL 0-199 Not Available [facility] (Lab) [address], [place], [address], 08/01/2024 05:15:21 07/31/19 25 07/31/2024 LIPID PANEL ,AMA (LDL- CALC) triglyceride s 46 mg/dL 0-150 NCEP Refer ence Value s for Trigl yceri olayinka: Bharti l: <150 mg/dL Borde rline High: 150 - 199 mg/dL High: 200 - 499 mg/dL Very High: >/= 500 mg/dL Not Available [facility] (Lab) [address] [place], [address], 08/01/2024 05:15:21 07/31/19 25 07/31/2024 LIPID PANEL ,AMA (LDL- CALC) HDL cholesterol 85 mg/dL >40 Not Available [facility] (Lab) [address] [place], [address], 08/01/2024 05:15:21 07/31/1907/31/2024 LIPID PANEL ,AMA (LDL- CALC) LDL cholesterol 82 mg/dL 0-99 Cutof f value s recom ann d by the Natio nal Nereyda stero l Educa tion Progr am: ROXANNE ABLE: Nereyda stero l <200 mg/dL LDL <100 mg/dL BORDE RLINE : Nereyda stero l 200-2 39 mg/dL LDL 101-1 59 mg/dL HIGHE R RISK: Nereyda stero l >240 mg/dL LDL >160 mg/dL , HDL <40 mg/dL Not Available [facility] (Lab) [address] [place], [address], 08/01/2024 05:15:21 07/31/1907/31/2024 LIPID PANEL ,AMA (LDL- CALC) non-HDL cholesterol 95 mg/dL no refere nce range A reaso nable goal for non-H DL nereyda stero l is one that is 30 mg/dL highe r than the LDL nereyda stero l goal. Not Available [facility] (Lab) [address] [place], [address], 08/01/2024 05:15:21 07/31/19 25 07/31/2024 LIPID PANEL ,AMA (LDL- CALC) chol/HDL ratio 2.1 . 0.0-5. 0 On October 17, 2022, [facility] labor atori es campos ed the equat ion for calcu latin g estim ated low-d ensit y lipop rotei n-cho leste rol (LDL- C) from the Fried niranjan equat ion to the Karina n/Sharmaine ibrahim equat ion. This new equat ion is only valid for lipid panel s with trigl yceri olayinka < 400 mg/dL . Studi es have demon strat ed that this new equat ion will impro ve the accur acy of LDL-C , espec ially in scena taylor when LDL-C jj ntrat ions are relat ively low (< 100 mg/dL ), trigl yceri olayinka are eleva ángel, or patie nt is non-f astin g. Refer ences : - Karina ocasio, Zhen Gonzalez, Robi Huddleston , [facility] maricruz palomo, Michael Hopkins, Michael vasquez, Suleiman orozco , and Ian Lan . 2013. Comp ariso n of a Novel Metho d vs the Fried niranjan Equat ion for Estim ating Low-D ensit y Lipop rotei n Nereyda stero l Level s from the Stand elva Lipid Profi le. STEPHEN: The Journ al of the Ameri can Medic al Assoc iatio n 310 19): 2060- . - Reena whyte V, Leona J, Neno whyte A, Quintin M, Jenna e R, Renita whyte E, Parag orozco RS, Riky SR, Karina ocasio SS. Fast ing Versu s Nonfa sting and Low-D ensit y Lipop rotei n Nereyda stero l Accur acy. Circu latio n. 2017Jun 26;137 (1):1 0-19. Not Available [facility] (Lab) [address], [place], [address], 08/01/2024 05:15:21 07/31/19 25 07/31/2024 TSH, REFLE X FREE T4 TSH 1.56 uIU/m L 0.30-5 .33 Not Available [facility] (Lab) [address] [place], [address], 08/01/2024 05:15:21 07/31/19 25 07/31/2024 HEMOG LOBIN A1C hemoglobin A1C 5.4 % 4.0-5. 6 This is a corre cted resul t. Previ ous resul t was 5.7 % on 025 at 0411 RET[employer] C[employer] The Ameri can Diabe jodi Assoc iatio n recom mends that a prima ry goal of thera py shoul d be a HBA1C of < 7% and that physi cians shoul d reeva luate the treat ment regim en in patie nts with HBA1C value s consi stent ly > 8%. <5.7% Bharti l 5.7 - 6.4% Incre ased risk for diabe jodi >=6.5 % Diagn ostic of diabe jodi <7.0% Goal of thera py >8.0% Actio n sugge sted Not Available [facility] (Lab) [address], [place], [address], 08/12/2024 17:19:21 04/04/20 22 04/04/2022 MAMMO , scree jamari, bilat eral No observ ation record ed. [facility] [address], [place], [address], 04/01/2023 10:05:57 Result Notes None recorded. Problems Name Problem SNOMED Code Status Onset Date Resolution Date Notes Provider Name and Address Organization Details Recorded Time Screenin g for malignan t neoplasm of cervix Completed 201102/06/2022 Screening for malignant neoplasms of the cervix;Re corded Elsewhere : No Locati on: [facility] So urce: EHR Chron ic: N Practic e ID: [id number] Bill able Time: 10:15:00 AM Shirley chowdary [place] - [facility] 16:43:38 Speciali zed medical examinat ion Completed 201302/06/2022 ROUTINE FRUIT CHECKER EXAMINATI ON;Record ed Elsewhere : No Locati on: [facility] So urce: EHR Chron ic: N Practic e ID: [id number] Bill able Time: 01:30:00 PM [facility] 2 16:43:38 Adult health examinat ion Completed 201302/06/2022 ROUTINE MEDICAL EXAM;Shivam rded Elsewhere : No Locati on: [facility] So urce: EHR Chron ic: N Practic e ID: [id number] Bill able Time: 01:30:00 PM Shirley R[facility] [address] 16:43:[address] Concept Completed 201602/06/2022 Encntr for general adult medical exam w/o abnormal findings; Recorded Elsewhere : No Locati on: [facility] So urce: EHR Chron ic: N Practic e ID: [id number] Bill able Time: 01:00:00 PM Shirley R[facility] 2 16:43:38 Evaluati on finding Completed 201602/06/2022 Hematuria , unspecifi ed;Record ed Elsewhere : No Locati on: [facility] So urce: EHR Chron ic: N Practic e ID: [id number] Bill able Time: 12:00:00 AM Shirley R[facility] 2 16:43:38 Blood leukocyt e number above referenc e range [id number] Completed 201602/06/2022 Elevated white blood cell count, unspecifi ed;Record ed Elsewhere : No Locati on: [facility] So urce: EHR Chron ic: N Practic e ID: [id number] Bill able Time: 11:15:00 AM Shirley [facility] 2 16:43:38 Acute vaginiti s [id number] Completed 201602/06/2022 Acute vaginitis ;Recorded Elsewhere : No Locati on: [facility] So urce: EHR Chron ic: N Practic e ID: [id number] Bill able Time: 11:15:00 AM Shirley [facility] 2 16:43:38 Urinary tract infectio us disease [id number] Completed 201602/06/2022 UTI;Recor ded Elsewhere : No Locati on: [facility] So urce: EHR Chron ic: N Practic e ID: [id number] Bill able Time: 11:15:00 AM Shirley Rasmussen [facility] 2 16:43:38 Screenin g for malignan t neoplasm of rectum Completed 201702/06/2022 Encounter for screening for malignant neoplasm of rectum;Re corded Elsewhere : No Locati on: [facility] So urce: EHR Chron ic: N Practic e ID: [id number] Bill able Time: 11:30:00 AM Shirley Rasmussen [facility] [address] 16:43:[address] Concept Completed 201802/06/2022 Encntr for scaler exam (general) (routine) w/o abn findings; Recorded Elsewhere : No Locati on: [facility] So urce: EHR Chron ic: N Practic e ID: [id number] Bill able Time: 11:00:00 AM Shirley [facility] 2 16:43:38 Problem Notes None recorded. Procedures Surgical History Date Name Laterality Status Provider Name and Address Organization Details Recorded Time 03/15/20 23 Date of Last Pap Smear completed Naheed Velazquez [facility] 07/25/2024 11:24:08 04/04/20 22 Date of Last Mammogram completed [facility] 03/15/2023 14:00:12 augmentation mammoplasty completed [facility] 08/27/2020 16:13:05 Imaging Results None recorded. Procedure Notes None recorded. Medical Equipment None Reported. Allergies Allergen ID Allergen Name Allergen Category Reaction Reaction Severity Criticality Documentation Date Start Date Code Code System Note Provider Name and Address Organization Details Recorded Time 9848 sulfameth oxazole medicatio n Not available Not available Not available 06/11/2020 58274 RxNorm Comme nt: Locat ion: Cyrus castillo Cau sativ e Agent : Septr a; Not Available [facility] 0 14:14:44 9853 trimethop rim medicatio n Not available Not available Not available 06/11/2020 48696 RxNorm Comme nt: Locat ion: Cyrus castillo Cau sativ e Agent : Septr a; Not Available [facility] 0 14:14:44 9859 Product containin g penicilli n (product) medicatio n Not available Not available Not available 06/11/2020 41650 8001 SNOMED Comme nt: Locat ion: Cyrus castillo; Not Available [facility] 0 14:14:44 Medications Name Sig Start Date Stop Date Status Note LastModified by Organization Details LastModified Time amoxicill in 500 mg capsule TK ONE C PO TID TAT 08/28 completed Not Available Not Available Not Available hydrocodo ne 5 mg-acetam inophen 325 mg tablet TK 1 T PO Q 4-6 H PRN P 08/28 completed Not Available Not Available Not Available Keflex 500 mg capsule take 1 capsule by oral route every 8 hours 06/13 completed Prescrib ed Elsewher e: No Locat ion: Madelin newby [facility] odify By: oumou maiunter DateTime : 10/01/19 19 09:15:00 AM Not Available Not Available Not Available Diflucan 150 mg tablet take 1 tablet (150MG) by oral route once 05/13 completed Prescrib ed Elsewher e: No Locat ion: Madelin newby [facility] odify By: [email or web address] trick En counter DateTime : 07/30/19 13 10:32:29 AM Not Available Not Available Not Available Macrobid 100 mg capsule take 1 capsule by oral route every 12 hours with food 09/30 completed Prescrib ed Elsewher e: No Locat ion: Madelin newby [facility] odify By: oumou maiunter DateTime : 04/26/20 18 03:30:00 PM Not Available Not Available Not Available oxycodone -acetamin ophen 5 mg-325 mg tablet TAKE 1 TABLET BY MOUTH EVERY 4 TO 6 HOURS NEEDED FOR PAIN 08/28 completed Not Available Not Available Not Available minocycli ne 75 mg capsule take 1 capsule by oral route every day 05/13 completed Prescrib ed Elsewher e: Yes Loca tion: [facility] odify By: [email or web address] tiok En counter DateTime : 04/16/20 12 10:15:00 AM Not Available Not Available Not Available sertralin e 25 mg tablet TAKE 1 TABLET BY MOUTH DAILY active Not Available Not Available No t Available Wellbutri n 100 mg tablet take 1 tablet by oral route 2 times every day 02/07 completed Prescrib ed Elsewher e: Yes Loca tion: [facility] odify By: lacie castillo DateTime : 12/08/19 17 01:00:00 PM Not Available Not Available Not Available sertralin e 50 mg tablet TAKE 3 TABLETS BY MOUTH DAILY active Not Available Not Available No t Available Depo-Prov era 150 mg/mL intramusc ular syringe inject 1 millilit er by intramus cular route every 3 months 12/07 completed Prescrib ed Elsewher e: No Locat ion: [facility] odify By: lacie Duque r DateTime : 05/13/20 14 01:30:00 PM Not Available Not Available Not Available bupropion HCl XL 300 mg 24 hr tablet, extended release TAKE 1 TABLET BY MOUTH EVERY MORNING 08/28 completed Not Available Not Available Not Available bupropion HCl XL 150 mg 24 hr tablet, extended release TAKE 1 TABLET BY MOUTH DAILY IN THE MORNING active Not Available Not Available No t Available ID NOW COVID-19 Test Kit USE 1 KIT TODAY DIRECTED 02/07 completed Not Available Not Available Not Available Vitals Date Recorded Body height Body mass index (BMI) Body weight Systolic And Diastolic Provider Name and Address Organization Details Last Updated DateTime 07/31/2024 158.75 cm 21 kg/m2 90289.87 g 107/67 mm[Hg] Naheed Velazquez [facility] 07/31/2024 09:11:24 Date Recorded Body height Body mass index (BMI) Body weight Systolic And Diastolic Provider Name and Address Organization Details Last Updated DateTime 08/28/2020 160.02 cm 19.7 kg/m2 64617.75 g 104/66 mm[Hg] [facility] 08/28/2020 11:22:09 Date Recorded Body height Body mass index (BMI) Body weight Systolic And Diastolic Provider Name and Address Organization Details Last Updated DateTime 02/07/2022 158.75 cm 19.6 kg/m2 40328.57 g 102/64 mm[Hg] Shirley [facility] 02/07/2022 11:01:45 Date Recorded Body height Body mass index (BMI) Body weight Systolic And Diastolic Provider Name and Address Organization Details Last Updated DateTime 03/15/2023 158.75 cm 20.3 kg/m2 06195.94 g 100/72 mm[Hg] [facility] 03/15/2023 13:59:48 Social History Question Answer Notes LastModified by Organizat ion Details LastModified Time Tobacco Smoking Status Never Smoker Shirley [facility] 02/07/2022 11:01:54 Do You Have An Advance Directive? No Information n ot available 02/07/2022 How Many Years Have You Consumed Alcohol? 25 [email or web address] Information not available 07/25/2024 Are You Blind Or Do You Have Difficulty Seeing? No Information n ot available 02/07/2022 What Is Your Level Of Caffeine Consumption? Occasional [email or web address] Information not available 07/25/2024 How Much Tobacco Do You Chew? None Information not available 02/07/2022 In The 14 Days Before Symptom Onset, Have You Had Close Contact With A Laboratory-confirm ed COVID-19 While That Case Was Ill? No Information n ot available 02/07/2022 In The 14 Days Before Symptom Onset, Have You Had Close Contact With A Person Who Is Under Investigation For COVID-19 While That Person Was Ill? No Information not available 02/07/2022 Have You Been To An Area Known To Be High Risk For COVID-19? No Information not available 02/07/2022 Are You Deaf Or Do You Have Serious Difficulty Hearing? No Information not available 02/07/2022 What Type Of Diet Are You Following? REGULAR Information n ot available 02/07/2022 What Is The Highest Grade Or Level Of School You Have Completed Or The Highest Degree You Have Received? [id number] [email or web address] Information not available 07/25/2024 Are There Any Guns Present In Your Home? No Information not available 02/07/2022 Have You Ever Been Counseled For Unhealthy Alcohol Use? No Information not available 02/07/2022 Do You Use Protection During Sex? No [email or web address] Information not available 07/31/2024 Do You Use Your Seat Belt Or Car Seat Routinely? Yes Information not available 02/07/2022 Do You Have Smoke And Carbon Monoxide Detectors In Your Home? Yes Information not available 02/07/2022 How Much Tobacco Do You Smoke? No Information not available 02/07/2022 Do You Use Sunscreen Routinely? Yes Information not available 02/07/2022 Has Tobacco Cessation Counseling Been Provided? No Information not available 02/07/2022 Have You Used IV Drugs? No Information not available 02/07/2022 Do You Have Difficulty Walking Or Climbing Stairs? No Information not available 02/07/2022 Sex: Unknown Functional Status Question Answer Note LastModified by Organizat ion Details LastModified Time Do you use any illicit or recreational drugs? No Information not available 02/07/2022 Do you or have you ever used any other forms of tobacco or nicotine? No Information not available 02/07/2022 What is your level of alcohol consumption? Moderate Information not available 02/07/2022 Are you able to walk independently without assistance or assistive devices? [email or web address] Information not available 02/07/2022 Are you able to care for yourself independently? 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 No Information not available 02/07/2022 What is your exercise level? Occasional [email or web address] Information not available 07/25/2024 Mental Status Question Answer Note LastModified by Organization D etails LastModified Time Do you feel stressed (tense, restless, nervous, or anxious, or unable to sleep at night)? [id number] Information not available 07/31/2024 Family History Relationship Description Onset Age of this Age Resolved Age Notes LastModified by Organization Details LastModified Time Father No current problems or disability [email or web address] Not available 08/27 16:16:39 Mother No current problems or disability [email or web address] Not available 08/27 16:16:39 Medical History Condition Response Allergies (Food, seasonal, environmental ) N Other N Drug/Latex Allergies/Reactions N Breast Cancer N Blood Transfusion N Lung Disease N Dermatologic Disorders N Defects or Inherited Disease N Breast Problem N Gestational Diabetes N Hematologic disorders N Anesthesia Complications N History of STI N Deep Vein Thrombosis N Polycystic ovary syndrome N Anxiety Disorder N Autoimmune disease N Arthritis N Polyps N Infertility N History of abnormal pap N Acid Reflux (GERD) N Cancer N Varicosities N Stroke N Neurologic/Epilepsy N Endometriosis N High Cholesterol N Headaches N Fibromyalgia N Kidney Disease N Heart Problems N Thyroid Problems N Kidney or Bladder Problems N GI Problems N Eating Disorder N Anemia N Art (IVF or FET) N Psychiatric Illness N Ovarian Cancer N Diabetes N Pulmonary (TB, Asthma) N Hepatitis/Liver Disease N No Past Medical History N Eczema N Urinary Tract Infection N Abuse/Domestic Violence N Asthma N Trauma/Violence N Depression/ depression N Heart Disease N Pre-Eclampsia N Hypertension N Osteoporosis N Thrombophilias N Gynecological History Statement/Question Response Date of Last Mammogram 04/04/2022 Flow Moderate Date of LMP 06/25/2024 N Was last menstrual period normal Y STIs/STDs N Date of Last Colonoscopy None Desired Control Method None On BCP's at Conception? N HPV Vaccine N Duration of Flow (days) 6 Current Control Method None Age at First Child 25 Are cycles usually normal Y Frequency of Cycle (Q days) 30 Sexually Active? N Menses Monthly Y Age of first menstrual cycle 14 Date of Last Pap Smear 03/15/2023 Sexual Problems? N LMP Approximate N Obstetrics History GPAL:G 1 P 0 0 0 1 Type Value Living 1 Total 1 Past Encounters Encounter ID Performer Location Encounter Start Date Encounter Closed Date Diagnosis/Indication Diagnosis SNOMED-CT Code Diagnosis ICD10 Code Diagnosis IMO Codes Diagnosis Note [id number] Mikaela Mills [facility] [address] [address] 08/28/2020 11:09:13 08/28/2020 11:48:35 Gynecologic examination [id number] Z01.419 Suggested Calcium with Vitamin D 1200-1500m g daily. Patient advised to get an annual flu shot in the fall and she could obtain at [facility] or [facility] care clinic. Also to obtain TDap vaccinatio n if you have not had one in the last 10 years. Recommend yearly mammograms . Encouraged monthly self breast exams. Encourage safe sexual practices, to use condoms and limit partners if not already in a monogamous relationsh ip. Engage in daily exercise of low impact aerobic exercise 45-60 minutes 4-5 times weekly. Avoid tobacco and illicit drugs as well as using moderation with alcohol intake less than 1-2 8 oz beverages daily. This lifestyle behavior pattern will lead to less health conditions and longer life span. If BMI greater than 25 weight watchers or dietary consult advised. All questions have been answered. Patient appears to understand informatio n, but if you have any questions please call or respond to this email. Last pap/hpv 2019 wnl NOrmal pap/hpv hx monogamous x 4yrs Prefers to pursue pap/hpv this year Mammo ordered reviewed pap guidelines [id number] Mikaela Mills [facility] [address] [address] 02/07/2022 10:52:50 02/07/2022 11:33:07 Gynecologic examination [id number] Z01.419 Suggested Calcium with Vitamin D 1200-1500m g daily. Patient advised to get an annual flu shot in the fall and she could obtain at [facility] or [facility] care clinic. Also to obtain TDap vaccinatio n if you have not had one in the last 10 years. Recommend yearly mammograms . Encouraged monthly self breast exams. Encourage safe sexual practices, to use condoms and limit partners if not already in a monogamous relationsh ip. Engage in daily exercise of low impact aerobic exercise 45-60 minutes 4-5 times weekly. Avoid tobacco and illicit drugs as well as using moderation with alcohol intake less than 1-2 8 oz beverages daily. This lifestyle behavior pattern will lead to less health conditions and longer life span. If BMI greater than 25 weight watchers or dietary consult advised. All questions have been answered. Patient appears to understand informatio n, but if you have any questions please call or respond to this email. Pap/hpv sent (opts to have pap done)STD Screen declinedGe netic Screen discussedC olon Screen discussedD exa Screen naRoutine Labs ordered (if labs abn may require PCP referral). Adult heal th examination [id number] Z00.00 Screening mammography 24 641250 Z12.31 [id number] Mikaela Mills , [facility] [address] [address] 03/15/2023 13:46:40 03/15/2023 14:18:44 Gynecologic examination [id number] Z01.419 Z11.51 Suggested Calcium with Vitamin D 1200-1500m g daily. Patient advised to get an annual flu shot in the fall and she could obtain at [facility] or [facility] clinic. Also to obtain TDap vaccinatio n if you have not had one in the last 10 years. Recommend yearly mammograms . Encouraged monthly self breast exams. Encourage safe sexual practices, to use condoms and limit partners if not already in a monogamous relationsh ip. Engage in daily exercise of low impact aerobic exercise 45-60 minutes 4-5 times weekly. Avoid tobacco and illicit drugs as well as using moderation with alcohol intake less than 1-2 8 oz beverages daily. This lifestyle behavior pattern will lead to less health conditions and longer life span. If BMI greater than 25 weight watchers or dietary consult advised. All questions have been answered. Patient appears to understand informatio n, but if you have any questions please call or respond to this email. Pap/hpv sent (opts to have pap done)STD Screen declinedGe netic Screen discussedC olon Screen opts for cologuardD exa Screen naRoutine Labs PCP Screening mammography 24 137193 Z12.31 Screening for malignant neoplasm of colon [id number] Z12.11 cologuard ordered [id number] Simon Johnson MD [facility] [address] [address] 07/31/2024 08:56:34 07/31/2024 14:08:19 Gynecologic examination [id number] Z01.419 Annual gynecologi korina exam performed. Patient will come back in a year unless there are new symptoms. Suggest Calcium with Vitamin D if not eating in diet. Patient advised to get annual flu shot. Recommend yearly physicals and perform monthly breast exams. Genetic testing is available for patients with family history of cancer. Engage in safe sexual practices, use condoms. Encouraged to have daily exercise. Avoid tobacco and illicit drugs, moderation of alcohol. If BMI greater than 25 dietary consult advised. If you have any questions please call or email. mammogram- order given, pt to schedule colon cancer screening - PCP; pt states that she had cologuard last year - WNL DEXA scan- n/a Pap smear- UTD (2022 - WNL), will repeat in 3-5 years per ASCCP guidelines laboratory evaluation - requested STI testing - declined Screening mammography 24 641770 Z12.31 Cervical lymphadenopathy [id number] R59.0 Ultrasound ordered to evaluate area of concern. Discussed possibilit y of enlarged cervical lymph node.Will check labs.Recom mended f/u with PCP as well for further workup of possible lymphadeno primo. Health Concerns Section Related Observation LastModified by Organization Detai ls LastModified Time None Recorded Concern Status LastModified by Organization Details LastModified Time None Recorded Advance Directives Directive N: Payers Insurance Date Sequence Insurance Name Policy Number Policy Walter Covered Member ID Walter Member ID Guarantor Name 03/15/[address] [facility] [id number] Alejandrina Ahmadi [id number] Alejandrina Ahmadi 08/04/2024 1 [facility] ([facility] [id number] Alejandrnia Ahmadi [id number] Alejandrina Ahmadi Notes Date Note Type Note Provider Name and Address Organization Details Recorded Time 1 text/html Annual GYNReported by PatientHistoryFor history, patient reportsno gynecologic complaints.Genitourinary symptomsFor menstrual cycle, patient reportsnormal menses. For urinary symptoms, patient reportsno hematuriaandno incontinence. For vulva, patient reportsno genital lesion. For vagina, patient reportsnormal vaginal discharge.Breast symptomsFor breast, patient reportsno breast pain,no breast lump, andno nipple discharge.ContraceptionFo r current contraception, patient reportssatisfied with current contraceptionandcondoms.E ndocrine symptomsFor sexual complaints, patient reportsno sexual complaints,no pain during intercourse, andnormal libido. For menopausal symptoms, patient reportsno menopausal symptomsandnormal vaginal lubrication.Psychological symptomsFor psychological symptoms, patient reportsno depression,no anxiety, andno pmdd.Preventative measuresFor preventive measures, patient reportsencourage self breast examination,encourage regular exercise,encourage no tobacco use,encourage regular mammograms starting age 40, andneeds to schedule mammogram. Mikaela Mills [facility] [address], [place], [address], [facility] 08/28/2020 11:47:06 2 text/html Annual GYNReported by PatientGenitourinary symptomsFor menstrual cycle, patient reportsnormal menses. For urinary symptoms, patient reportsno hematuriaandno incontinence. For vulva, patient reportsno genital lesion. For vagina, patient reportsnormal vaginal discharge.Breast symptomsFor breast, patient reportsno breast pain,no breast lump, andno nipple discharge.ContraceptionFo r current contraception, patient reportsbirth control not practiced (not currently sa).Endocrine symptomsFor sexual complaints, patient reportsno sexual complaints,no pain during intercourse, andnormal libido. For menopausal symptoms, patient reportsno menopausal symptomsandnormal vaginal lubrication.Psychological symptomsFor psychological symptoms, patient reportsno depression,no anxiety, andno pmdd.Preventative measuresFor preventive measures, patient reportsencourage self breast examination,encourage regular exercise,encourage no tobacco use,encourage regular mammograms starting age 40,followed with yearly pap smears, andneeds to schedule mammogram. Mikaela Mills [facility] [address], [place], [address], [facility] 02/07/2022 11:17:22 3 text/html Annual GYNReported by PatientHistoryFor history, patient reportsno gynecologic complaints.Genitourinary symptomsFor menstrual cycle, patient reportsnormal menses. For urinary symptoms, patient reportsno hematuriaandno incontinence. For vulva, patient reportsno genital lesion. For vagina, patient reportsnormal vaginal discharge.Breast symptomsFor breast, patient reportsno breast pain,no breast lump, andno nipple discharge.ContraceptionFo r current contraception, patient reportssatisfied with current contraceptionandcondoms.E ndocrine symptomsFor sexual complaints, patient reportsno sexual complaints,no pain during intercourse, andnormal libido. For menopausal symptoms, patient reportsno menopausal symptomsandnormal vaginal lubrication.Psychological symptomsFor psychological symptoms, patient reportsno depression,no anxiety, andno pmdd.Preventative measuresFor preventive measures, patient reportsencourage self breast examination,encourage regular exercise,encourage no tobacco use,encourage regular mammograms starting age 40,followed with yearly pap smears,needs to schedule mammogram, andneeds to schedule colonoscopy. Mikaela Mills, [facility] [address], [place], [address], [facility] 03/15/2023 14:14:57 5 text/html Annual GYNReported by PatientHistoryFor history, patient reportsno gynecologic complaints.Genitourinary symptomsFor menstrual cycle, patient reportsnormal menses. For urinary symptoms, patient reportsno hematuriaandno incontinence. For vulva, patient reportsno genital lesion. For vagina, patient reportsnormal vaginal discharge.Breast symptomsFor breast, patient reportsno breast pain,no breast lump, andno nipple discharge.ContraceptionFo r current contraception, patient reportsbirth control not practiced.Endocrine symptomsFor sexual complaints, patient reportsno sexual complaints,no pain during intercourse, andnormal libido. For menopausal symptoms, patient reportsno menopausal symptomsandnormal vaginal lubrication.Psychological symptomsFor psychological symptoms, patient reportsno depression,no anxiety, andno pmdd.Preventative measuresFor preventive measures, patient reportsencourage self breast examination,encourage regular exercise,encourage no tobacco use, andencourage regular mammograms starting age 40. Patient here for annual wellness exam.Patient denies FRUIT CHECKER concerns. Not currently sexually active. Patient c/o a small, tender lump on left-side of neck that has been there for several months. No change in size that patient is aware of. Denies recent illness, viral infection, weight loss or gain, fever, fatigue. Denies recent change in medications, foreign travel, or known bug/animal bites.Patient states that she has PCP, but has not been seen in 2 years. BRIJESH CARROLL NP [address], [place], [address], [facility] 07/31/2024 14:04:25 OBGyn Episode Ob Episode Information Episode Created Date Number of Fetuses Patient Bloodtype Patient rh Status Prepregnancy Weight lbs Domestic Partner Domestic Partner Phone Father Name Wire Straightener Status 08/28/19 21 1 CLOSED Fetus Data First Name Last Name Admitted to NICU Weight (g) Sex Living Outcome Pediatric Complications Fetus ID Race Codes Race Delivery Type 3912.23 1 M Full Term [id number] Vaginal Delivery Tony Calculation Initial Tony Date Initial Exam Date Initial Exam Provider Initial Ultrasound Date Last Menstrual Period Date Ultra Sound Weeks Gestation 0 Eighteen To Twenty Week Tony Update Ultra Sound Date Fundal Height At Umbil Quickening Date Ultra Sound Latest Weeks Gestation Final Tony Confirmed By Final Tony Confirmed Date Final Tony Date Ultra Sound Latest Days Gestation 0 0 Menstrual History Last Menstrual Date Menses Monthly On Bcp Conception Prior Menses Frequency Hcg Plus Date Menarche Onset Age Delivery Information Delivery Date Delivery Type Labor Anesthesia Weeks Gestation Incision Type Labor Labor Length Hrs Delivered By Post Complications Tubal Sterilization Discharge Date Comments 1 40 Discharge Information Feeding Method Contraceptive Method Maternal HG B and HCT Levels
[2025-04-25 15:35] VITALS: BP 126/63; PULSE 90; RESP 18; TEMP 36.5; O2SAT 100
== END 2025-04-25 16:01 | disposition home or self-care (01) ==
PROVIDERS: Emergency Provider Nurse Practitioner Family; PCP Family Medicine
DX: J01.90 Acute sinusitis, unspecified (principal); J45.909 Unspecified asthma, uncomplicated; Z87.891 Personal history of nicotine dependence
CPT/HCPCS: 99213; G0463